=== PATIENT | female | born 1990 | race Asian ===

== ENCOUNTER 2017-03-31 06:42 | Inpatient (IN) | payer OTHER ==
[~2017-03-31] VITALS: Ht 171 cm; Wt 72.6 kg
[2017-03-31] MEDS ORDERED: CITRIC ACID/SODIUM CITRATE 30 ML SOLUTION UDCUP PO PRN (07:00)
[2017-03-31] MEDS ORDERED: METOCLOPRAMIDE HCL 5 MG/ML 2 ML VIAL IVP PRN (07:00)
[2017-03-31] MEDS ORDERED: RINGERS SOLUTION,LACTATED 1,000 ML IV SCH (07:00)
[2017-03-31] MEDS ORDERED: RINGERS SOLUTION,LACTATED 1,000 ML IV PRN (07:00)
[2017-03-31] MEDS ORDERED: BUPIVACAINE HCL/PF 0.25% 10 ML VIAL ONE (07:05)
[2017-03-31] MEDS ORDERED: LIDOCAINE HCL/PF 2% 5 ML VIAL ONE (07:05)
[2017-03-31] MEDS ORDERED: FentaNYL/BUPIV 0.125%/NS/PF 0 ML ED ONE (07:06)
[2017-03-31] MEDS ORDERED: OXYTOCIN 30 UNITS/LACT RINGERS 500 ML IV ONE ×2 (07:11→08:04)
[2017-03-31] MEDS ORDERED: LIDOCAINE HCL/PF 1% 30 ML VIAL ONE ×2 (07:12→07:34)
[2017-03-31 07:13] VITALS: BP 112/57
[2017-03-31] MEDS ORDERED: OXYGEN THERAPY IH SCH (08:00)
[2017-03-31] MEDS ORDERED: IBUPROFEN 800 MG TABLET PO PRN (08:15)
[2017-03-31] MEDS ORDERED: LIDOCAINE HCL/PF 1% 30 ML VIAL INJ PRN (08:15)
[2017-03-31] MEDS ORDERED: GLYCERIN/WITCH HAZEL LEAF 40 PADS JAR TP PRN (08:15)
[2017-03-31] MEDS ORDERED: OxyCODONE HCL/ACETAMINOPHEN 5-325 MG TABLET PO PRN ×2 (08:15)
[2017-03-31] MEDS ORDERED: BENZOCAINE 20%/MENTHOL 56 GM SPRAY CANISTER TP PRN (08:15)
[2017-03-31] MEDS ORDERED: LANOLIN 7 GM OINTMENT TP PRN (08:15)
[2017-03-31] MEDS ORDERED: PREN1TAB80 PO (08:44)
[2017-03-31 09:15] LABS: EOSINOPHILS % (AUTO) 0 % (1.0-6.0); HEMOGLOBIN 12.3 g/dL (12.0-16.0); LYMPHOCYTES # (AUTO) 0.5 K/uL (1.0-4.8); LYMPHOCYTES % (AUTO) 2.9 % (22.0-44.0); MEAN CORPUSCULAR HEMOGLOBIN 34.5 pg (26.0-34.0); MEAN CORPUSCULAR VOLUME 99 fL (80-100); MONOCYTES # (AUTO) 0.4 K/uL (0.1-1.0); NEUTROPHILS # (AUTO) 17.2 K/uL (1.8-7.7); RED BLOOD CELL COUNT(AUTO) 3.55 MIL/uL (4.00-5.20); RED CELL DISTRIBUTION WIDTH 12.4 % (11.5-14.5); WHITE BLOOD COUNT (AUTO) 18.1 K/uL (4.5-11.0)
[2017-03-31] MEDS ORDERED: MISOPROSTOL 100 MCG TABLET PR ONE (09:15)
[2017-03-31 09:17] LABS: NEUTROPHILS % (AUTO) 95.1 % (40.0-70.0)
[2017-03-31 16:14] LABS: RUBELLA SCREEN (IGG) IMMUNE (IMMUNE)
[2017-03-31] MEDS: MAGNESIUM HYDROXIDE SUSPENSION 30 ML UDCUP PO PRN (20:40)
[2017-04-01 06:43] LABS: BASOPHILS % (AUTO) 0.2 % (0.0-2.0); EOSINOPHILS % (AUTO) 0.3 % (1.0-6.0); HEMATOCRIT 31.1 % (36-46); HEMOGLOBIN 10.8 g/dL (12.0-16.0); LYMPHOCYTES # (AUTO) 1.7 K/uL (1.0-4.8); LYMPHOCYTES % (AUTO) 14.5 % (22.0-44.0); MEAN CORPUSCULAR HEMOGLOBIN 34.7 pg (26.0-34.0); MEAN CORPUSCULAR HGB CONC 34.8 G/dL (31.0-37.0); MEAN CORPUSCULAR VOLUME 100 fL (80-100); MONOCYTES # (AUTO) 0.5 K/uL (0.1-1.0); MONOCYTES % (AUTO) 4.5 % (2.0-9.0); NEUTROPHILS # (AUTO) 9.1 K/uL (1.8-7.7); NEUTROPHILS % (AUTO) 80.5 % (40.0-70.0); RED BLOOD CELL COUNT(AUTO) 3.12 MIL/uL (4.00-5.20); RED CELL DISTRIBUTION WIDTH 12.8 % (11.5-14.5); WHITE BLOOD COUNT (AUTO) 11.4 K/uL (4.5-11.0)
[2017-04-01] MEDS: MAGNESIUM HYDROXIDE SUSPENSION 30 ML UDCUP PO PRN (08:25)
== END 2017-04-01 11:30 | disposition home or self-care (01) | DRG 775 ==
LOC: EDBD → 4S 06:42 → OBSVTOIN 06:42
PROVIDERS: ADMIT Obstetrics & Gynecology; ATTEND Obstetrics & Gynecology
PROC: 10E0XZZ Delivery of Products of Conception, External Approach (ICD-10-PCS; principal; 2017-03-31)
PROC: 0KQM0ZZ Repair Perineum Muscle, Open Approach (ICD-10-PCS; 2017-03-31)
PROC: 10907ZC Drainage of Amniotic Fluid, Therapeutic from Products of Conception, Via Natural or Artificial Opening (ICD-10-PCS; 2017-03-31)
DX: O70.1 Second degree perineal laceration during delivery (principal); Z37.0 Single live birth; Z3A.38 38 weeks gestation of pregnancy; Z79.899 Other long term (current) drug therapy
CPT/HCPCS: 86592; 86762; 86850; 86900; 86901; 87340; J2590; J3490